=== PATIENT | male | born 1930 | race Caucasian/White ===

== ENCOUNTER 2016-06-30 12:28 | Emergency (ER) | payer MEDICARE, BC ==
[~2016-06-30] VITALS: Ht 176.5 cm; Wt 83.6 kg
[~2016-06-30 12:28] MED LIST: ACET-732 PO; ASCO10007 PO; ASPI81TA2 PO; BUSP10TA71 PO; CETI-115 PO; CHOL200026 PO; CLOB15OI3 TP; CLOP75TA33 PO; FLUO-138 PO; FURO20TA4 PO; HYDR-2164 PO; IRBE300T19 PO; LEVO100T12 PO; LUTE6TAB PO; NICA20CA4 PO; PANT40TA32 PO; POTA-81 PO; PYGEUM PO; TRI IODINE PO; TRIA10.82 EA NOSTRIL; TRIA15CR3 TOP; UBIQ100C PO; VITA100012 PO; VITA100T2 PO; WARF2.5T73 PO; WARF5TAB69 PO; ZINC50TA4 PO
--- OUTSIDE RECORDS SUMMARY | 2016-06-30 12:32 | XMS REPORT | Continuity of Care Document ---
Author Author [facility] Organization [facility] Address Unknown Phone Unavailable Care Team Providers Care Control Room Tender Name Role Phone Unknown, Unknown Primary Care Physician Unavailable Source Comments Some departments are not documenting in the electronic medical record. If you do not see the information that you expected, contact Release of Information in the Health Information Management department at [phone] for further assistance in locating additional records.[facility] Active Allergies and Adverse Reactions Allergen Noted Date Severity Reactions Comments Adhesive 07/24/2015 Medium RASH Aricept 07/24/2015 Low SEE COMMENTS Extreme dreams, restlessness, confusion Beta-Blockers 07/24/2015 Low SEE COMMENTS Extreme irritability (Beta-Adrenergic Blocking Agts) Bystolic 07/24/2015 Medium SEE COMMENTS Extreme fatigue, shortness of breath, severe muscle cramps, loss of appetite, rash Cardura 07/24/2015 Low SEE COMMENTS Nausea, sweats, dizziness, diarrhea Celebrex 07/24/2015 Low SEE COMMENTS Constipation Clonidine 07/24/2015 Low SEE COMMENTS Dry mouth, sleepy, extreme fatigue, foggy headed, unsteady on feet, Codeine 07/24/2015 Medium RASH, ITCHING Daypro 07/24/2015 High HIVES Demerol 07/24/2015 Medium SEE COMMENTS Uncontrollable shaking, cold, blood pressure drops, vomiting, difficulty urinating Digoxin 07/24/2015 Low SEE COMMENTS Confusion, blurred vision, too much sleep Diltiazem 07/24/2015 Low SEE COMMENTS Shortness of breath, extreme fatigue, impaired vision, headache, light headed, edema Doxycycline 07/24/2015 Low STOMACH UPSET Enalapril 07/24/2015 Low SEE COMMENTS Irritability, achy, extreme fatigue Guaifenesin 07/24/2015 Medium RASH, ITCHING Hydrocodone-Acetaminophen 07/24/2015 Low SEE COMMENTS ineffective Ibuprofen 07/24/2015 Low SEE COMMENTS Feel "drugged", elevates blood pressure Levaquin 07/24/2015 Low SEE COMMENTS Nausea, weakness, no appetite, sleeplessness, shortness of breath, stomach pain, headache, constipation Lyrica 07/24/2015 Low SEE COMMENTS Confusion, extreme weakness, fatigue, dehydration, constipation, sleepy Metoprolol 07/24/2015 Low SEE COMMENTS Sleepy, muscle pain in neck and shoulders Metronidazole 07/24/2015 High HIVES Norvasc 07/24/2015 Low SEE COMMENTS Quit working Penicillins 07/24/2015 High HIVES, SEE COMMENTS Closed bronchial tubes Phenergan 07/24/2015 Medium SEE COMMENTS Uncontrollable shaking, cold, blood pressure drops, vomiting, difficulty urinating Spironolactone 07/24/2015 Low UNKNOWN Tylenol Pm 07/24/2015 Low SEE COMMENTS Hangover, confusion Verapamil 07/24/2015 Low SEE COMMENTS Shortness of breath, extreme fatigue, impaired vision, headache, light headed, edema Zanaflex 07/24/2015 Medium MUSCLE PAIN Zithromax 07/24/2015 Medium RASH, ITCHING Current Medications Prescription Sig. Disp. Refills Start End Date Status Date doxycycline hyclate 75 mg Take 150 mg by mouth Active tab daily. aspirin EC 81 mg tablet Take 81 mg by mouth Active daily. irbesartan (AVAPRO) 300 Take 300 mg by mouth at Active mg tablet bedtime daily. bacitracin 500 unit/g Apply to affected area. Active topical ointment As directed busPIRone (BUSPAR) 10 mg Take 10 mg by mouth three Active tablet times daily. clobetasol (TEMOVATE) Apply to affected area Active 0.05 % topical cream twice daily. FLUoxetine (PROZAC) 20 mg Take 20 mg by mouth Active capsule daily. hydrochlorothiazide Take 12.5 mg by mouth Active (HYDRODIURIL) 25 mg daily. tablet furosemide (LASIX) 20 mg Take 20 mg by mouth Active tablet daily. levothyroxine (SYNTHROID) Take 100 mcg by mouth Active 100 mcg tablet daily. triamcinolone (NASACORT) Apply 2 Sprays to each Active 55 mcg nasal inhaler nostril as directed daily. niCARdipine (CARDENE) 20 Take 20 mg by mouth three Active mg capsule times daily. clopiDOGrel (PLAVIX) 75 Take 75 mg by mouth Active mg tablet daily. Potassium 99 mg tab Take 1 Tab by mouth Active daily. potassium chloride SR Take 20 mEq by mouth Active (K-DUR) 20 mEq tablet daily. Pantoprazole 40 mg grps Take 1 Packet by mouth Active daily. SAW PALMETTO PO Take by mouth. Active Sulfacetamide Sodium 10 % Apply to affected area. Active clsr triamcinolone acetonide Apply to affected area Active (KENALOG) 0.1 % topical twice daily. cream acetaminophen (TYLENOL) Take 325 mg by mouth Active 325 mg tablet every 4 hours as needed for Pain. ubiquinol (bulk) 100 % Use as directed. Active powd vitamins, B complex tab Take 1 Tab by mouth Active daily. cholecalciferol (VITAMIN Take 2,000 Units by mouth Active D-3) 1,000 units tablet daily. ascorbic acid(+) 1,000 mg Take by mouth. Active tablet vitamin E 100 unit Take 100 Units by mouth Active capsule daily. warfarin (COUMADIN) 5 mg Take 5 mg by mouth daily. Active tablet zeaxanthin (bulk) 90 % Use as directed. Active powd Zinc 15 mg tab Take 30 mg by mouth Active daily. cetirizine (ZYRTEC) 10 mg Take 10 mg by mouth Active tablet daily. ketotifen(+) (ZADITOR) Place 1 Drop into or Active 0.025 % (0.035 %) around eye(s) as Needed. ophthalmic solution Zinc 50 mg tab Take by mouth. Active Active Problems Problem Noted Date PVD (peripheral vascular disease) (HCC) Overview: Gortex graft of the left leg by Dr. Becerra 12/2012 Hypertension Atrial fibrillation (HCC) YONY on CPAP Overview: with O2 during HOS Depression Emphysema lung (HCC) Macular degeneration Mitral valve prolapse Pulmonary HTN (HCC) Osteoarthritis CAD (coronary artery disease) Cardiac mass Social History Tobacco Use Types Packs/Day Years Used Date Never Assessed Last Filed Vital Signs Vital Sign Reading Time Taken Blood Pressure 120/80 07/24/2015 1:58 PM CDT Pulse 106 07/24/2015 1:58 PM CDT Temperature - - Respiratory Rate - - Height 1.753 m (5' 9") 07/24/2015 1:58 PM CDT Weight 92.987 kg (205 lb) 07/24/2015 1:58 PM CDT Body Mass Index 30.26 07/24/2015 1:58 PM CDT Oxygen Saturation 98% 07/24/2015 1:58 PM CDT Plan of Care Health Maintenance Due Date Last Done Comments Physical (Comprehensive) 07/09/1939 Exam Pertussis Vaccine 07/09/1941 Tetanus Vaccine 1949 Shingles Vaccine 1992 Prevnar/Pneumovax (#1) 1997 Influenza Vaccine 10/15/2016 Results from Last 3 Months Not on file
--- OUTSIDE RECORDS SUMMARY | 2016-06-30 12:33 | XMS REPORT ---
Author Author [place] - Organization Unknown Address Unknown Phone Unavailable Allergies, Adverse Reactions, Alerts * Levaquin causes SHORTNESS OF BREATH. * Guaifenesin causes Eczema (rash). * Phenergan causes Adverse Reaction. * Demerol causes Eczema (rash). * Zithromax Z-Neeraj causes Mild Eczema (rash). * Codeine causes Eczema (rash). * Bystolic causes Eczema (rash). * Penicillins causes Severe Anaphylaxis. * Daypro causes Urticaria (hives). * metronidazole causes Urticaria (hives). * No Latex Allergy. * No IV Contrast Allergy. * No Known Food Allergies. Problems * Peripheral Neurovascular Process Impairment* Status:Resolved. * Peripheral Vascular Disease* Status:Active. Procedures No relevant procedures performed. Medication Medication reconciliation has not been performed. Results LAB--CHEMISTRY from 12/08/2012 10:50 AMAnion Gap 10 (3-20 ) BUN 17 mg/dL (4-20 mg/dL) Calcium 9.4 mg/dL (8.6-10.0 mg/dL) Chloride 101 mEq/L (99-109 mEq/L) CO2 27 mEq/L (22-32 mEq/L) Creatinine 1.20 mg/dL (0.64-1.27 mg/dL) eGFR 58 A (>60- ) Glucose 104 mg/dL H (70-100 mg/dL) Potassium 4.2 mEq/L (3.6-5.1 mEq/L) Sodium 138 mEq/L (136-144 mEq/L) LAB--COAG STUDIES from 12/08/2012 10:50 AMINR 1.3 H (0.9-1.2 ) LAB--HEMATOLOGY from 12/08/2012 10:50 AMHCT 46.4 % (42.0-52.0 %) HGB 16.5 g/dl (14.0-18.0 g/dl) MCH 32.4 pg H (27.0-32.0 pg) MCHC 35.6 g/dL (32.0-36.0 g/dL) MCV 91.2 fL (82.0-99.0 fL) MPV 10.1 fL (9.4-12.3 fL) Platelet Count 196 K/uL (150-400 K/uL) RBC 5.09 M/uL (4.60-6.20 M/uL) RDW 13.9 % (11.5-14.5 %) WBC 8.2 K/uL (4.8-10.8 K/uL)
--- OUTSIDE RECORDS SUMMARY | 2016-06-30 12:33 | XMS REPORT | Referral Summary ---
Author Author [facility] Organization [facility] Address Unknown Phone Unavailable Care Team Providers Care Anesthesiologist And Critical Care Name Role Phone Anurag Duran Primary Care Physician [phone] Encounter Date(s): 12/25/15 - 12/25/15 [facility] [address] [place] [address]- Discharge Disposition: 01-Home or Self Care Attending Physician: Jamir Hutchins MD Admitting Physician: Jamir Hutchins MD Vital Signs No data available for this section Problem List Condition Effective Dates Status Health Status Informant A-fib(Confirmed) Active patient CPAP (continuous Active patient positive airway pressure) dependence(Confirmed ) Acid Active patient reflux(Confirmed) HTN Active patient (hypertension)(Confi rmed) Moderate obstructive Active sleep apnea(Confirmed) Rosacea(Confirmed) Active patient Tissue perfusion Resolved alteration(Confirmed )1 1Problem added automatically by system based on initiation of Tissue Perfusion Cerebral Plan of Care Allergies, Adverse Reactions, Alerts Substance Reaction Severity Status azithromycin Rash Active codeine Eczema (rash) Active Rash Demerol HCl Active guaiFENesin Eczema (rash) Active levofloxacin SHORTNESS OF BREATH Active meperidine Eczema (rash) Active Nausea/Vomiting metroNIDAZOLE Urticaria (hives) Active nebivolol Active oxaprozin Active penicillin Anaphylaxis Active pregabalin Active promethazine Active Medications [place] Thyroid 60 mg oral tablet 1 tabs, Oral, Daily Start Date: 01/04/14 Status: Ordered Astaxanthin 4 mg Astaxanthin 4 mg, 1 tabs, Oral, Daily, 0 Refill(s) Start Date: 11/13/13 Status: Ordered Avapro 75 mg oral tablet 1 tabs, Oral, TID, 0 Refill(s) Start Date: 11/13/13 Status: Ordered BuSpar 10 mg, Oral, TID, 0 Refill(s) Start Date: 11/13/13 Status: Ordered cetirizine 10 mg oral tablet 1 tabs, Oral, Daily, # 30 tabs, 0 Refill(s) Start Date: 11/13/13 Status: Ordered Citracal + D 2 tabs, Oral, BID, 0 Refill(s) Start Date: 11/13/13 Status: Ordered clobetasol 0.05% topical cream 1 cristiana, Daily, 0 Refill(s) Start Date: 11/13/13 Status: Ordered enoxaparin 90 mg, SubCutaneous, q12hr, 0 Refill(s) Start Date: 01/09/14 Status: Ordered fluticasone 50 mcg/inh nasal spray 1 sprays, Nasal, BID, # 16 g, 0 Refill(s) Start Date: 11/13/13 Status: Ordered hydrochlorothiazide 12.5 mg oral tablet 0.5 tabs, Oral, Daily, 0 Refill(s) Start Date: 11/13/13 Status: Ordered magnesium oxide 250 mg oral tablet 1 tabs, Oral, BID, 0 Refill(s) Start Date: 11/13/13 Status: Ordered metoprolol tartrate 25 mg oral tablet 1 tabs, Oral, BID, 0 Refill(s) Start Date: 01/09/14 Status: Ordered minocycline 50 mg oral capsule 2 caps, Oral, q12hr, 0 Refill(s) Start Date: 01/08/14 Status: Ordered Niacinamide 500 mg oral tablet 1 tabs, Oral, Daily, # 30 tabs, 0 Refill(s) Start Date: 11/13/13 Status: Ordered niCARdipine 20 mg oral capsule 1 caps, Oral, TID, # 90 caps, 0 Refill(s) Start Date: 11/13/13 Status: Ordered Plavix 75 mg oral tablet mg tabs, Oral, Daily, 0 Refill(s) Start Date: 02/03/15 Status: Ordered Protonix 40 mg, Oral, Daily, 0 Refill(s) Start Date: 01/04/14 Status: Ordered PROzac 20 mg oral capsule 1 caps, Oral, Daily Start Date: 01/04/14 Status: Ordered triamcinolone acetonide 0 Refill(s) Start Date: 11/13/13 Status: Ordered Turmeric 95% Turmeric 95%, 1 tabs, Oral, Daily, 0 Refill(s) Start Date: 11/13/13 Status: Ordered Tylenol Regular Strength 325 mg oral tablet 2 tabs, Oral, q4hr, as needed, 0 Refill(s) Start Date: 11/13/13 Status: Ordered Ubiquinol 32% Ubiquinol 32%, 1 tabs, Oral, Daily, 0 Refill(s) Start Date: 11/13/13 Status: Ordered Vitamin B6 50 mg oral tablet 1 tabs, Oral, Daily, 0 Refill(s) Start Date: 11/13/13 Status: Ordered Vitamin C 1000 mg oral tablet 1 tabs, Oral, Daily, # 30 tabs, 0 Refill(s) Start Date: 11/13/13 Status: Ordered Vitamin D3 2000 intl units oral tablet 1 tabs, Oral, Daily, 0 Refill(s) Start Date: 11/13/13 Status: Ordered warfarin 2.5 mg oral tablet 1 tabs, Oral, Tuesday, 0 Refill(s) Start Date: 11/13/13 Status: Ordered warfarin 5 mg oral tablet 1 tabs, Oral, 6x/Wk, tuesday thru tuesday only, 0 Refill(s) Start Date: 01/04/14 Status: Ordered Results No data available for this section Immunizations No data available for this section Procedures Procedure Date Related Diagnosis Body Site Appendectomy BACK bilat cataracts removed biopsy pancreas bypass leg Carpal tunnel Deviated septum Endoscope Femoral endarterectomy femoral transluminal angioplasty laser rt. eye [id number] Pacemaker care removal scar tissue rt. eye Stent MADAN procedure Tonsillectomy 1WITH HARDWARE Social History Social History Type Response Smoking Status Former smoker; Type: Cigarettes; Tobacco use per day: More than 1 pack; Number of years: 38 Assessment and Plan No data available for this section
--- OUTSIDE RECORDS SUMMARY | 2016-06-30 12:33 | XMS REPORT | Continuity of Care Document ---
Author Author [facility] Organization [facility] Address Unknown Phone Unavailable Support Name Relationship Address Phone LENARD ROSS MD Caregiver [address] [place] [address] [place] [address] CANDICE DURAN DO Caregiver [facility] [address] [place] [address] ALISTAIR JACKSON MD Caregiver [address] [place] [address] [place] [phone] RICHARD VARGHESE Next Of Kin [address] [facility], [place] [id number] Insurance Providers Payer Name Policy Number Subscriber Name Relationship Medicare [id number] Jaswant Varghese 20 Self Blue Cross Select Plan 65 [id number] Jaswant Varghese 20 Self Advance Directives Directive Response Recorded Date/Time Advanced Directives Type DNR Documentation DPOA for Healthcare 07/11/13 9: 01pm Dr Cannon Resuscitation Status Do Not Resuscitate 07/11/13 7:54pm Resuscitation Documents on File Yes 01/27/14 11:52pm Chief Complaint and Reason for Visit Chief Complaint INFLUENEZA A/ HYPONATREMIA/SIRS Reason for Visit Hypertension Hypokalemia, gastrointestinal losses Influenza A Hyponatremia SIRS (systemic inflammatory response syndrome) Influenza A Pneumonia and influenza Problems Medical Problems Problem Onset Date Status Diarrhea Unknown Active Diarrhea Unknown Active Diarrhea Unknown Active Dehydration Unknown Active Chronic atrial fibrillation Unknown Active Anticoagulated on Coumadin Unknown Active Hypertension Unknown Active Chronic back pain Unknown Active Hypothyroidism Unknown Active Depression Unknown Active Hypokalemia, gastrointestinal losses Unknown Resolved Diarrhea Unknown Active Influenza A Unknown Active Hyponatremia Unknown Active SIRS (systemic inflammatory response syndrome) Unknown Active Influenza A Unknown Active Pneumonia and influenza Unknown Active Medications Medication Dose Route Sig Days/Qty Instructions Order Date Discontinued Date Status Cetirizine Hcl 10 Mg PO DAILY 05/07/13 Active Warfarin Sodium 5 Mg PO DAILY 05/07/13 Active Pantoprazole Sodium 40 Mg PO DAILY 05/07/13 Active Hydrochlorothiazide 12.5 Mg PO DAILY 05/07/13 Active Irbesartan 150 Mg PO TWICE A DAY 05/07/13 Active Thyroid 60 Mg PO DAILY 05/07/13 Active Lansoprazole 15 Mg PO BEDTIME 05/07/13 07/10/13 Discontinued Acetaminophen 2 Tab PO NEEDED 05/07/13 Active Nicardipine Hcl 20 Mg PO THREE TIMES A DAY 05/07/13 Active Buspirone Hcl 10 Mg PO THREE TIMES A DAY 05/07/13 Active Fluoxetine HCl 20 Mg PO DAILY 30 Qty 01/27/14 Active Benzonatate 200 Mg PO THREE TIMES A DAY PRN COUGH 30 Qty 02/01/14 Active Budesonide 0.5 Mg AEROSOL RESP.TX TWICE A DAY 14 Days 02/01/14 Active Diltiazem HCl 360 Mg PO DAILY 30 Days 02/01/14 Active Levalbuterol HCl 0.63 Mg AEROSOL FOUR TIMES DAILY 14 Days 02/01/14 Active Doxycycline Monohydrate 1 Cap PO TWICE DAILY WITH MEALS 7 Days Active Social History Social History Problem Response Recorded Date/Time Chewing Tobacco Status No 07/11/2013 7:10pm Hx Substance Use No 01/27/2014 8:39pm Hx Alcohol Use Y QUIT 25 YRS AGO 01/27/2014 8:39pm Has the pt used tobacco in the last 12 months No 01/27/2014 11:53pm Tobacco Usage none 07/12/2013 8:46am Query Response Start Date Stop Date Smoking Status Former smoker Hospital Discharge Instructions Instructions: Care Instructions: Reason for Hospitalization: Influenza A I was in the hospital because (patient own words): "I was weak and felt bad" Discharge Diet: regular Discharge Activity: as tolerated--wear O2 continuously, bleed into CPAP at night. Do breathing treatments 4x per day, put the pulmicort in the nebulizer 2x per day. Take your medications as rx'd, cooperate with the home health staff Follow Up Appointments: see Dr Duran in 1-2 weeks for follow up.[phone] APPOINTMENT TIME IS 02/11/2014 1:00. Patient Instructions: Should your symptoms return you could contact Dr Duran through the office or return to the ED for emergent evaluation Durable Medical Equipment: RT instruct on home O2 and nebulizer machine Condition at time of discharge: Good Bilirubin Level: 7.2 Congenital Heart Disease Screening Result: Pass Plan of Care Discharge Date 02/01/14 3:00pm Disposition 06 HOME HEALTH SERVICE Instructions/Education Provided DI for Influenza -- Adult Prescriptions See Medications Section Functional Status Query Response Date Recorded Physical Hygiene Self February 01, 2014 2:22pm Disabilities None February 01, 2014 2:22pm Devices Used None February 01, 2014 2:22pm Dressing Self February 01, 2014 2:22pm Ambulation Self February 01, 2014 2:22pm Diet Self February 01, 2014 2:22pm Mental Status Alert Oriented February 01, 2014 2:22pm Disabilities None February 01, 2014 2:22pm Devices Used None February 01, 2014 2:22pm Physical Hygiene Self February 01, 2014 2:22pm Dressing Self February 01, 2014 2:22pm Ambulation Self February 01, 2014 2:22pm Diet Self February 01, 2014 2:22pm Allergies, Adverse Reactions, Alerts Allergen Type Severity Reaction Status Last Updated Beta-Blockers (Beta-Adrenergic Bloc Adverse Reaction Unknown IRRITABILITY Active 01/27/14 Penicillin Allergy Unknown THROAT SWELLING Active 01/27/14 Guaifenesin Allergy Unknown ITCHY RASH Active 01/27/14 Potassium chloride Allergy Unknown PAIN Active 01/27/14 Codeine Allergy Unknown ITCHY RASH Active 01/27/14 Hydrocodone Adverse Reaction Unknown NAUSEA Active 01/27/14 Spironolactone Allergy Unknown Active 01/27/14 Chlorthalidone Adverse Reaction Unknown LEG CRAMPS Active 01/27/14 Ibuprofen Adverse Reaction Unknown "FEELS DRUGGED" Active 01/27/14 Metronidazole Allergy Unknown HIVES Active 01/27/14 Azithromycin Allergy Unknown ITCHY RASH Active 01/27/14 Amlodipine Adverse Reaction Unknown "QUIT WORKING" Active 01/27/14 Oxaprozin Allergy Unknown HIVES Active 01/27/14 Promethazine Allergy Unknown HYPOTENSION Active 01/27/14 Doxazosin Allergy Unknown N/D,DIZZINESS Active 01/27/14 Clonidine Adverse Reaction Unknown DRY MOUTH Active 01/27/14 Enalapril Adverse Reaction Unknown FATIGUE Active 01/27/14 Meperidine Allergy Unknown HYPOTENSION Active 01/27/14 Diphenhydramine Adverse Reaction Unknown "HANGOVER" Active 01/27/14 Tizanidine Adverse Reaction Unknown PAIN/WEAKNESS Active 01/27/14 Donepezil Adverse Reaction Unknown RESTLESSNESS Active 01/27/14 Levofloxacin Allergy Unknown N/V,SOA,WEISS Active 01/27/14 Nebivolol Allergy Unknown FATIGUE,SOA Active 01/27/14 Celecoxib Adverse Reaction Unknown CONSTIPATION Active 01/27/14 Pregabalin Allergy Unknown CONFUSION,WEAKNESS Active 01/27/14 Immunizations Name Given Type Hx Influenza Vaccination No Historical Hx Pneumococcal Vaccination No Historical Hx Tetanus, Diptheria, Pertussis No Historical Hx Influenza Vaccination No Historical Hx Tetanus Diptheria No Historical Hx Tetanus, Diptheria, Pertussis No Historical Hx Tetanus Toxoid Vaccination No Historical Vital Signs Acute Vital Signs Vital Response Date/Time Temperature (Fahrenheit) 96.4 deg F (96.8 - 99.1) Temperature (Calculated Celsius) 35.53049 degrees C (36.0 - 37.3) Temperature Source Axillary Pulse Rate (adult) 81 bpm (60 - 100) Respiratory Rate 16 breaths/min (10 - 20) O2 Sat by Pulse Oximetry 94 % (90 - 100) Oxygen Delivery Method Nasal Cannula Oxygen Flow Rate 3.00 L/min Height 5 ft 9 in Weight 205 lb Body Mass Index 30.0 kg/m^2 Results Test Source Date Result Interp. Ref. Range Comments Alanine Aminotransferase (ALT/SGPT) January 28, 2014 4:24am 39 U/L N 21 -72 Albumin January 28, 2014 4:24am 3.3 G/DL L 3.5-5.0 Albumin/Globulin Ratio January 28, 2014 4:24am 1.2 RATIO N 1.1-2.2 Alkaline Phosphatase January 28, 2014 4:24am 70 U/L N 38-126 Amylase Level July 10, 2013 2:15pm 67 U/L N 30-110 Anion Gap February 01, 2014 4:44am 11 MEQ/L N 5-15 Aspartate Amino Transf (AST/SGOT) January 28, 2014 4:24am 48 U/L N 17- 59 BUN/Creatinine Ratio February 01, 2014 4:44am 21 RATIO N 6-26 Band Neutrophils # February 01, 2014 4:44am 0.6 T/MM3 - Band Neutrophils % February 01, 2014 4:44am 6.0 % N 0-6 Basophils # (Auto) January 31, 2014 4:50am 0.0 T/MM3 N 0-0.2 Basophils (%) (Auto) January 31, 2014 4:50am 0.5 % N 0-2 Blood Urea Nitrogen February 01, 2014 4:44am 33.0 MG/DL H 9-20 C. difficile Toxin B Gene (PCR) July 12, 2013 10:10am Negative - If Toxin A is clinically indicated, treat accordingly. Calcium Level February 01, 2014 4:44am 9.2 MG/DL N 8.4-10.2 Calculated Osmolality February 01, 2014 4:44am 272 MOSM/KG N 261-280 Carbon Dioxide Level February 01, 2014 4:44am 23 MEQ/L N 22-30 Chemistry Specimen Hemolysis February 01, 2014 4:44am < 15 0-25 0-25 : No Hemolysis.26-70: Slight Hemolysis - can falsely elevate K and Urine Protein. 71-285: Moderate Hemolysis - can falsely elevate K, Troponin I, CA 19-9, PTH, CSF GLucose, and Urine Protein, and can falsely decrease Phenytoin. 286-999: Gross Hemolysis - can falsely elevate K, Troponin I, CA 19-9, PTH, CSF Glucose, and Urine Protine, and can falsely decrease Phenytoin. Recommend specimen recollection. Chloride Level February 01, 2014 4:44am 103 MEQ/L N 98-107 Creatinine February 01, 2014 4:44am 1.6 MG/DL DH 0.8-1.5 Eosinophils # (Auto) January 31, 2014 4:50am 0.1 T/MM3 N 0-0.5 Eosinophils (%) (Auto) January 31, 2014 4:50am 0.9 % N 0-4 Free Thyroxine July 12, 2013 8:30am 1.01 NG/DL N 0.78-2.19 COMMENT phillip Globulin January 28, 2014 4:24am 2.8 G/DL N 2.4-3.6 Glomerular Filtration Rate Calc February 01, 2014 4:44am 42 - Glucose Level February 01, 2014 4:44am 109 MG/DL N 75-110 Hematocrit February 01, 2014 4:44am 38.2 % L 41-53 Hemoglobin February 01, 2014 4:44am 13.5 GM/DL N 13.5-17.5 Icterus Index February 01, 2014 4:44am < 2 0-7 Immature Granulocyte # (Auto) January 31, 2014 4:50am 0.03 T/MM3 N 0.00 -0.03 Immature Granulocyte % (Auto) January 31, 2014 4:50am 0.3 % N 0.0-0.5 Influenza Type A Antigen January 27, 2014 9:28pm Positive - This test can not distinguish influenza A virus subtypes,e.g., seasonal influenza A and novel influenza A (H1N1). Influenza Type B Antigen January 27, 2014 9:28pm Negative - Negative for Flu B protein antigen. Assay sensitivity is90%. Lab Scanned Report January 17, 2014 8:31pm LAB TEST FORM REQUEST [id number] - Lipase July 10, 2013 2:15pm 102 U/L N 23-300 Lymphocytes # (Auto) January 31, 2014 4:50am 1.4 T/MM3 N 1-4.8 Lymphocytes # (Manual) February 01, 2014 4:44am 1.6 T/MM3 N 1-4.8 Lymphocytes % (Manual) February 01, 2014 4:44am 17.0 % L 23-45 Lymphocytes (%) (Auto) January 31, 2014 4:50am 15.9 % L 23-45 Magnesium Level January 30, 2014 4:51am 1.8 MG/DL N 1.6-2.3 Mean Corpuscular Hemoglobin February 01, 2014 4:44am 32.6 UUG N 26-34 Mean Corpuscular Hemoglobin Concent February 01, 2014 4:44am 35.3 GM/DL N 31-37 Mean Corpuscular Volume February 01, 2014 4:44am 92.3 UM3 N 80-100 Mean Platelet Volume February 01, 2014 4:44am 9.4 UM3 N 9.4-12.4 Monocytes # (Auto) January 31, 2014 4:50am 0.7 T/MM3 N 0-0.8 Monocytes # (Manual) February 01, 2014 4:44am 0.6 T/MM3 N 0-0.8 Monocytes % (Manual) February 01, 2014 4:44am 6.0 % N 0-9.0 Monocytes (%) (Auto) January 31, 2014 4:50am 8.2 % N 0-9.0 Neutrophils # (Auto) January 31, 2014 4:50am 6.5 T/MM3 N 1.8-7.7 Neutrophils # (Manual) February 01, 2014 4:44am 6.5 T/MM3 N 1.8-7.7 Neutrophils % (Manual) February 01, 2014 4:44am 70.0 % H 33-66 Neutrophils (%) (Auto) January 31, 2014 4:50am 74.2 % H 33-66 Platelet Count February 01, 2014 4:44am 208 T/MM3 N 130-400 Potassium Level February 01, 2014 4:44am 4.6 MEQ/L N 3.6-5 Prealbumin January 27, 2014 8:56pm 15.7 MG/DL L 17.6-36.0 COMMENT may use blood in lab Procalcitonin January 27, 2014 8:56pm 0.22 NG/ML - PCT </=0.5 ng/mL - sepsis not likely;PCT >0.5 and </=2 ng/mL - sepsis possible; PCT >2 ng/mL - sepsis likely; PCT >/=10 ng/mL - systemic inflammatory response - sepsis or septic shock highly indicated. Prothromb Time International Ratio February 01, 2014 4:44am 4.94 PH 0.81 -1.09 THERAPUTIC RANGE=2.00-3.00 FOR ANTI-THROMBOSIS THERAPUTIC RANGE=2.50- 3.50 FOR IMPLANTED VALVE RDW Standard Deviation February 01, 2014 4:44am 46.8 FL N 36.9-50.2 Reactive Lymphocytes # February 01, 2014 4:44am 0.1 T/MM3 H 0-0 Reactive Lymphocytes % February 01, 2014 4:44am 1.0 % H 0-0 Red Blood Count February 01, 2014 4:44am 4.14 M/MM3 L 4.50-5.90 Sodium Level February 01, 2014 4:44am 137 MEQ/L N 134-144 Stool Occult Blood July 10, 2013 2:55pm Negative - Has specimen been collected/obtained? Y Stool for White Cells July 10, 2013 2:55pm Negative - Has specimen been collected/obtained? Y Thyroid Stimulating Hormone (TSH) January 27, 2014 8:56pm 3.91 MIU/L N 0.47-4.68 COMMENT may use blood in lab Total Bilirubin January 28, 2014 4:24am 0.80 MG/DL N 0.20-1.30 Total Protein January 28, 2014 4:24am 6.1 G/DL L 6.3-8.2 Troponin I January 27, 2014 8:56pm 0.028 ng/ml N 0-0.12 Turbidity February 01, 2014 4:44am < 20 0-20 Urine Amorphous Urates January 27, 2014 9:23pm Moderate - Has specimen been collected/obtained? Y Urine Bacteria January 27, 2014 9:23pm Trace H - Has specimen been collected/obtained? Y Urine Bilirubin January 27, 2014 9:23pm Negative - Has specimen been collected/obtained? Y Urine Blood January 27, 2014 9:23pm 1+ H - Has specimen been collected /obtained? Y Urine Collection Type January 27, 2014 9:23pm Voided-not cc-midstr - Has specimen been collected/obtained? Y Urine Color January 27, 2014 9:23pm Yellow - Has specimen been collected/obtained? Y Urine Culture Indicated July 10, 2013 2:55pm Cult not indicated - Has specimen been collected/obtained? Y Urine Glucose (UA) January 27, 2014 9:23pm Negative - Has specimen been collected/obtained? Y Urine Hyaline Casts July 10, 2013 2:55pm 5-10 /LPF - Has specimen been collected/obtained? Y Urine Ketones January 27, 2014 9:23pm Negative - Has specimen been collected/obtained? Y Urine Leukocyte Esterase January 27, 2014 9:23pm Negative - Has specimen been collected/obtained? Y Urine Mucus July 10, 2013 2:55pm Present - Has specimen been collected /obtained? Y Urine Nitrite January 27, 2014 9:23pm Negative - Has specimen been collected/obtained? Y Urine Protein January 27, 2014 9:23pm 3+ H - Has specimen been collected/obtained? Y Urine RBC January 27, 2014 9:23pm 3-5 /HPF H - Has specimen been collected/obtained? Y Urine Specific [place] January 27, 2014 9:23pm >=1.030 H - Has specimen been collected/obtained? Y Urine Squamous Epithelial Cells January 27, 2014 9:23pm 0-5 - Has specimen been collected/obtained? Y Urine Turbidity January 27, 2014 9:23pm Clear - Has specimen been collected/obtained? Y Urine Urobilinogen January 27, 2014 9:23pm 0.2 EU/DL - Has specimen been collected/obtained? Y Urine WBC January 27, 2014 9:23pm None seen /HPF - Has specimen been collected/obtained? Y Urine pH January 27, 2014 9:23pm 6.0 - Has specimen been collected/ obtained? Y Venous Blood Lactate January 27, 2014 8:56pm 1.2 MMOL/L N 0.6-2.2 Vitamin B12 Level January 27, 2014 8:56pm 699 PG/ML N 308-041 COMMENT may use blood in lab White Blood Count February 01, 2014 4:44am 9.3 T/MM3 N 4.5-11.0 Blood Culture Peripheral Blood January 27, 2014 8:56pm NO GROWTH AFTER 4 DAYS Stool Culture Stool July 10, 2013 2:55pm Name: JASWANT VARGHESE Unit #: [id number] : 1930 Sex: M DISCHARGE SUMMARY Admit Date: 01/27/14 Report #: [id number] General Date Date DATE: 02/01/14 TIME: 14:04 Attending Physician Lenard Ross MD Admitting Physician Lenard Ross MD Consulting Physician Celso Benavides MD Admitting Diagnosis (1) Influenza A Status: Acute (2) SIRS (systemic inflammatory response syndrome) Status: Acute (3) Hyponatremia Status: Acute (4) Diarrhea Status: Acute (5) Dehydration Status: Acute (6) Hypokalemia, gastrointestinal losses Status: Acute (7) Chronic atrial fibrillation Status: Chronic (8) Anticoagulated on Coumadin Status: Chronic (9) Hypertension Status: Chronic (10) Depression Status: Chronic (11) Hypothyroidism Status: Chronic (12) Chronic back pain Status: Chronic Discharge Diagnosis same adding pneumonia Procedures none Laboratory Laboratory Laboratory Tests Test 02/01/14 04:44 White Blood Count 9.3 T/MM3 Red Blood Count 4.14 M/MM3 Hemoglobin 13.5 GM/DL Hematocrit 38.2 % Mean Corpuscular Volume 92.3 UM3 Mean Corpuscular Hemoglobin 32.6 UUG Mean Corpuscular Hemoglobin 35.3 GM/DL Concent RDW Standard Deviation 46.8 FL Platelet Count 208 T/MM3 Mean Platelet Volume 9.4 UM3 Neutrophils % (Manual) 70.0 % Band Neutrophils % 6.0 % Lymphocytes % (Manual) 17.0 % Reactive Lymphocytes % 1.0 % Monocytes % (Manual) 6.0 % Neutrophils # (Manual) 6.5 T/MM3 Band Neutrophils # 0.6 T/MM3 Lymphocytes # (Manual) 1.6 T/MM3 Reactive Lymphocytes # 0.1 T/MM3 Monocytes # (Manual) 0.6 T/MM3 Prothromb Time International 4.94 Ratio Turbidity < 20 Sodium Level 137 MEQ/L Potassium Level 4.6 MEQ/L Chloride Level 103 MEQ/L Carbon Dioxide Level 23 MEQ/L Anion Gap 11 MEQ/L Blood Urea Nitrogen 33.0 MG/DL Creatinine 1.6 MG/DL Glomerular Filtration Rate 42 Calc BUN/Creatinine Ratio 21 RATIO Glucose Level 109 MG/DL Calculated Osmolality 272 MOSM/KG Calcium Level 9.2 MG/DL Icterus Index < 2 Chemistry Specimen Hemolysis < 15 History of Present Illness Mr. Varghese is an 83-year-old gentleman who presents to [facility] Emergency Room secondary to increasing shortness of breath, cough, congestion and fever. He reports on January 24 he started noticing more shortness of breath and cough. Cough has been thick and productive of yellow sputum at times. His chest has become sore from all the coughing he has done. During this time, he has been feeling more weak and feverish. Today he did start running higher temperature, almost 101 at home. His appetite has been very diminished. He is not feeling hungry. He did have two episodes of emesis today. He has not had any diarrhea. Denies chest pressure or pain. At home he did have an episode where he started losing balance and went down, landing on some clothes. His found it very, very difficult to get him back up. In light of his worsening symptoms, he presents to emergency room where he is evaluated. His white count is elevated at 11.9 with 85% neutrophils and 4% bands. Serum sodium is decreased at 125. Temperature is elevated at 101.6 and he is tachycardic with heart rate between 110 and 120. Influenza type A antigen is positive. In light of his influenza pneumonia with secondary sepsis, as manifested by leukocytosis with shift, tachycardia and temperature 101.6, Dr. Ross was notified and patient was subsequently placed in inpatient status at [facility] for supportive care and treatments. Anticipated length of stay is deemed to be greater than two midnights. Intensity of care is deemed moderate in that he will need IV fluids, IV Rocephin, close cardiopulmonary monitoring. Hospital Course 01/27- 1. Will place patient inpatient admission status at [facility] under the care of Dr. Ross. 2. Initiate Tamiflu 75 mg p.o. b.i.d. for empiric treatment of influenza. 3. Start Rocephin 1 g IV daily for antimicrobial coverage. With his multitude of allergies, this precludes other antibiotic therapy. 4. Initiate IV fluids of normal saline at 100 cc/hour for hydration and also to normalize serum sodium, monitoring serum sodium closely. 5. Continue with supplemental oxygen, weaning as able. 6. Initiate nebulizer treatments of DuoNeb q.i.d. and q.2 p.r.n. along with budesonide 0.5 mg b.i.d. 7. Continue with Protonix but will switch to 40 mg IV daily for GI protection as well as for his GERD. 8. Continue with Coumadin for DVT prophylaxis as well as in light of his atrial fibrillation. Pharmacy will manage INR and adjust Coumadin. 9. Monitor cardiac telemetry. 10. Initiate respiratory precautions in light of influenza. 11. Home medications will be continued with the exception of holding his hydrochlorothiazide secondary to hyponatremia. 12. Have Zofran available as needed for nausea. 12. PRN medications are ordered. 13. Discuss code status with patient. He requests no resuscitation. Order is written. 14. Recheck CMP, CBC in a.m. 15. Check prealbumin to assess nutritional status. Will check TSH in light of his hypothyroidism. Vitamin B12 will be obtained secondary to his small vessel ischemic changes of the brain to exclude vitamin B deficiency which could lead to memory loss. 16. Patients care will be returned to Dr. Duran at time of discharge from [facility]. 01/28- Will hold HCTZ, continue IVF, follow lab, wean off O2, if unsuccessful will recheck CXR. Making good gains 01/29- Switch to Xopenex for management of side effect from the Duoneb. Follow lab, have staff ambulate in the halls. Pt has been having short runs of NSVT and Frequent PVCs on the monitor as well as being tachycardic with his afib--he is an established pt of Dr Benavides's--will have him see--Dr Benavides started Diltiazem for better rate control 01/30 Continue Tamiflu for Influenza tx. Breathing improved, off o2. RT to add Acapella. Na 135 today, will remove fluid restriction, gave instructions on monitoring free water/fluid intake. INR 2.44, continues on Coumadin Device interrogation to be done--no acute findings Cardizem increased by Dr. Benavides, continues in afib. BC neg at 48 hours. K improved to 3.8. 01/31- Continue Rocephin for antimicrobial coverage. Tamiflu for viral influenza. CXR reveals pneumonia, and pt is desaturating with activity. Spoke with pt and regarding staying in the hospital while initially we had been talking about discharge soon. They choose to pursue Home O2 and Home health and return home. 02/01- Pt is set up for home O2 and a home nebulizer machine through [facility]. [facility] will see for home health services. Pt will go home on Doxycycline, Tamiflu last dose is today. Dr Duran updated per phone regarding discharge planning. INR monitoring through the Home health service. Should pt have any difficulty he could contact Dr Duran through the office or return to the ED for emergent evaluation. Time spent in discharge activity is 45 min Problems: (1) Pneumonia and influenza Status: Acute (2) Influenza A Status: Acute (3) SIRS (systemic inflammatory response syndrome) Status: Acute (4) Hyponatremia Status: Acute (5) Diarrhea Status: Acute (6) Dehydration Status: Acute (7) Hypokalemia, gastrointestinal losses Status: Resolved (8) Chronic atrial fibrillation Status: Chronic (9) Anticoagulated on Coumadin Status: Chronic (10) Hypertension Status: Chronic (11) Depression Status: Chronic (12) Hypothyroidism Status: Chronic (13) Chronic back pain Status: Chronic DVT Prophylaxis: Coumadin GI Prophylaxis: Protonix Code Status Do Not Resuscitate Home Meds Active Scripts Doxycycline Monohydrate 100 Mg Capsule1 Cap PO BIDWM 7 Days Prov:LEONARDA PANTOJA DO 02/01/14 Levalbuterol HCl (Xopenex)0.63 Mg/3 Ml Inha0.63 Mg AEROSOL QID 14 Days Prov:LEONARDA PANTOJA DO 02/01/14 Diltiazem HCl (Cardizem [place])360 Mg [id number] Mg PO DAILY 30 Days Prov:LEONARDA PANTOJA DO 02/01/14 Budesonide (Pulmicort)0.5 Mg/2 Ml Inha0.5 Mg AEROSOL RTBID 14 Days Prov:SCARLETTLEONARDA BARAJAS DO 02/01/14 Benzonatate 200 Mg [id number] Mg PO TID PRN (COUGH) #30 CAP Prov:LEONARDA PANTOJA DO 02/01/14 Reported Medications Fluoxetine HCl 20 Mg [id number] Mg PO DAILY #30 01/27/14 Buspirone Hcl (Buspar)10 Mg Qvkuju85 Mg PO TID 05/07/13 Nicardipine Hcl 20 Mg Qihvoqo41 Mg PO TID 05/07/13 Acetaminophen (Tylenol)500 Mg Tablet2 Tab PO PRN 05/07/13 Thyroid ([place] Thyroid)60 Mg Fkcawo20 Mg PO DAILY 05/07/13 Irbesartan (Avapro)300 Mg Slshgn170 Mg PO BID 05/07/13 Hydrochlorothiazide 25 Mg Vbbzff98.5 Mg PO DAILY 05/07/13 Pantoprazole (Protonix)40 Mg Tablet.dr40 Mg PO DAILY 05/07/13 Warfarin Sodium 5 Mg Tablet5 Mg PO DAILY 05/07/13 Cetirizine Hcl (Zyrtec)10 Mg Itblwcw15 Mg PO DAILY 05/07/13 Discharge Disposition stable Copies To 1: CANDICE DURANEMANLEONARDA Feb 01, 2014 14:05 Procedures Procedure Status Date Provider(s) ROUTINE VENIPUNCTURE completed 01/17/14 COMPLETE CBC W/AUTO DIFF WBC completed 01/17/14 Encounters Encounter Location Date/Time Discharged Inpatient [facility] 01/27/14 10:29pm Registered Clinic [facility] 01/17/14 5:00pm Recent Diagnosis Hypertension Hypokalemia, gastrointestinal losses Influenza A Hyponatremia SIRS (systemic inflammatory response syndrome) Influenza A Pneumonia and influenza
[2016-06-30 12:34] VITALS: Ht 176.5 cm; Wt 83.6 kg
--- OUTSIDE RECORDS SUMMARY | 2016-06-30 12:34 | XMS REPORT | Referral Summary ---
Author Author [facility] Organization [facility] Address Unknown Phone Unavailable Care Team Providers Care Short Goods Drier Name Role Phone Anurag Duran Primary Care Physician [phone] Encounter VC Date(s): 12/25/15 - 12/25/15 [facility], [facility] [address] [place] [place] [address] Discharge Diagnosis: YONY on CPAP Discharge Diagnosis: Nocturnal hypoxemia Discharge Disposition: 01-Home or Self Care Attending Physician: Jamir Hutchins MD Admitting Physician: Jamir Hutchins MD Vital Signs Most recent to 1 oldest [Reference Range]: Peripheral Pulse 84 bpm Rate [60-100 bpm] (12/25/15 10:57 AM) Blood Pressure 140/70 mmHg [90-140/60-90 mmHg] (12/25/15 10:57 AM) SpO2 92 % (12/25/15 10:57 AM) Problem List Condition Effective Dates Status Health [...] Anaphylaxis Active pregabalin Active promethazine Active Medications Iuka Thyroid 60 mg oral tablet 1 tabs, [...]
--- OUTSIDE RECORDS SUMMARY | 2016-06-30 12:34 | XMS REPORT | Continuity of Care Document ---
Author Author [facility] Organization [facility] Address Unknown Phone Unavailable Support Name Relationship Address Phone CANDICE CHAPA DO Caregiver [address] [facility] [place] [address] Unavailable ALISTAIR JACKSON MD Caregiver [address] [place] [address] [place] [address] Unavailable RICHARD VARGHESE Next Of Kin [address] [facility], [place] [id number] Insurance Providers Guarantor AbimaelJaswant Ashish Address [address] [place] [address] Email [email or web address] Payer Medicare Policy Number [id number] Subscriber's Name Jaswant Varghese Relationship 18 Self Effective Date 97 Payer Enviable [employer] Plan 65 Policy Number [id number] Subscriber's Name Jaswant Varghese Relationship 18 Self Group Number [id number] Advance Directives Directive Response Recorded Date/Time Advanced Directives Type DNR Documentation DPOA for Healthcare 07/11/13 9:01pm Ordered Resuscitation Status Do Not Resuscitate 07/11/13 7:54pm Chief Complaint and Reason for Visit Chief Complaint Nosebleed Reason for Visit Epistaxis [id number] Problems Active Problems Medical Problem Onset Date Status Abnormal findings on diagnostic imaging of heart and coronary circulation Unknown Acute Acute sinusitis Unknown Acute Anticoagulated on Coumadin Unknown Chronic Atherosclerosis of [place] artery of both lower extremities Unknown Chronic Atherosclerotic heart disease of [place] coronary artery without angina pectoris Unknown Chronic Atrial fibrillation Unknown Acute CAD (coronary artery disease) Unknown Acute Chronic atrial fibrillation Unknown Chronic Chronic back pain Unknown Chronic Dehydration Unknown Acute Depression Unknown Chronic Diarrhea Unknown Acute Elevated INR Unknown Acute Epistaxis Unknown Acute Essential (primary) hypertension Unknown Chronic Hypertension Unknown Chronic Hypokalemia, gastrointestinal losses Unknown Resolved Hyponatremia Unknown Acute Hypothyroidism Unknown Chronic Influenza A Unknown Acute Other secondary pulmonary hypertension Unknown Chronic Pneumonia and influenza Unknown Acute Presence of cardiac pacemaker Unknown Chronic Retinal hemorrhage, right ~03/10/2015 Acute SIRS (systemic inflammatory response syndrome) Unknown Acute Surgical Problem Onset Date Status Status post coronary artery stent placement Unknown Acute Medications Current Home Medications Medication Dose Units Route Directions Days Qty Instructions Start Date Acetaminophen (Tylenol) 500 Mg Tablet 2 Tab Oral As Needed as needed for Pain 05/07/13 Ascorbic Acid (Vitamin C) 1,000 Mg Tablet 1 Tab Oral Daily Aspirin 81 Mg Tab.chew 81 Mg Oral Daily 30 Tablet 03/11/15 Buspirone Hcl (Buspar) 10 Mg Tablet 10 Mg Oral Three Times A Day 05/07/13 Cetirizine Hcl (Zyrtec) 10 Mg Tablet 10 Mg Oral Daily 03/11/15 Cholecalciferol (Vitamin D3) (Vitamin D-3) 2,000 Unit Capsule 1 Cap Oral Daily 08/05/15 Clobetasol Propionate 15 Gm Oint...g. 1 Applic Topical As Needed as needed for Itching 08/13/14 Clopidogrel Bisulfate (Clopidogrel) 75 Mg Tablet 75 Mg Oral Daily 30 03/11/15 Fluoxetine Hcl 20 Mg Capsule 20 Mg Oral Daily 03/11/15 Furosemide 20 Mg Tablet 1 Tab Oral Daily 08/05/15 Hydrochlorothiazide 25 Mg Tablet 12.5 Mg Oral Daily 05/07/13 Irbesartan 300 Mg Tablet 300 Mg Oral Daily 03/11/15 Levothyroxine Sodium 100 Mcg Tablet 1 Tab Oral Before Breakfast 06/17/14 Lutein 6 Mg Tablet 1 Tab Oral Daily 08/05/15 Nicardipine Hcl 20 Mg Capsule 20 Mg Oral Three Times A Day Pantoprazole Sodium (Protonix) 40 Mg Tablet.dr 40 Mg Oral Before Breakfast 05/07/13 Potassium Chloride 20 Meq Tablet.er 20 Meq Oral Give With Breakfast Take 1 tablet, by mouth, daily with breakfast. 08/05/15 Pygeum 100 Mg Oral Daily 08/05/15 Tri-Iodine 12.5 Mg Oral Daily 08/05/15 Triamcinolone (Triamcinolone Acetonide) 15 Applic/15 G Cr 1 Applic Topically As Needed 30 Gram 03/11/15 Triamcinolone Acetonide (Nasacort) 10.8 Ml [place] 2 [place] Each Nostril As Needed 06/17/14 Ubiquinol 100 Mg Capsule 1 Cap Oral Daily 08/05/15 Vitamin B Complex 100 No.2 (B-100 Complex) 100 Mg Tablet.er 1 Tab Oral Daily 08/05/15 Vitamin E 1,000 Unit Capsule 1 Cap Oral Daily 08/05/15 Warfarin Sodium 2.5 Mg Tablet 2.5 Mg Oral We,Sa 03/11/15 Warfarin Sodium 5 Mg Tablet 5 Mg Oral Mcgill,Mo,Tu,Th,Fr 05/07/13 Zinc Gluconate (Zinc) 50 Mg Tablet 50 Mg Oral Daily 08/05/15 Past Home Medications Medication Directions Ordered Status Amiodarone Hcl 200 Mg Tablet, 200 Mg Oral Daily as needed for First Dose On 12/2906/18/14 Discontinued Diltiazem Hcl (Cardizem Cd) 300 Mg Cap.er.24h, 300 Mg Oral Daily 06/17/14 Discontinued Diltiazem Hcl (Cardizem La) 360 Mg Tab.er.24h, 360 Mg Oral Daily 06/14/14 Discontinued Irbesartan (Avapro) 300 Mg Tablet, 150 Mg Oral Twice A Day 07/16/14 Discontinued Lansoprazole 15 Mg Capsule.dr, 15 Mg Oral Bedtime 05/07/13 Discontinued Nicardipine Hcl 20 Mg Capsule, 20 Mg Oral Three Times A Day 05/07/13 Discontinued Triamcinolone (Triamcinolone Acetonide) Unknown Strength Cr, Unknown Dose Topically As Needed 08/13/14 Discontinued Social History Social History Problem Response Recorded Date/Time Onset Date Status Chewing Tobacco Status No 07/11/2013 7:10pm Not Applicable Not Applicable Hx Substance Use No 11/01/2015 11:00pm Not Applicable Not Applicable Hx Alcohol Use N QUIT 25 YRS AGO 11/01/2015 11:00pm Not Applicable Not Applicable Has the pt used tobacco in the last 12 months No 08/05/2015 11:05am Not Applicable Not Applicable Tobacco Usage none 08/05/2015 10:20am Not Applicable Not Applicable Query Response Start Date Stop Date Smoking Status Former smoker Hospital Discharge Instructions No hospital discharge instructions. Plan of Care Discharge Date 11/02/15 2:57am Disposition 01 DISCHARGED HOME, SELF-CARE Condition at Discharge Stable Instructions/Education Provided Nosebleed Prescriptions See Medication Section Referrals CANDICE CHAPA DO Order Date: 2 Days Address: [address] [address] Note: Additional Instructions/Education IF BLEEDING REOCCURS, BLOW NOSE TO CLEAR CLOTS AND APPLY AFRIN TO NARE (SEVERAL SPRAYS) AND APPLY CLAMP FOR 20 MINUTES. MAY REPEAT AN ADDITIONAL TIME. IF BLEEDING DOES NOT STOP, OR IF YOU ARE CONCERNED, PLEASE RETURN TO THE ER. SKIP TUESDAY'S DOSE OF WARFARIN DUE TO ELEVATED INR 4.4 TODAY Functional Status No functional status results. Allergies, Adverse Reactions, Alerts Allergen Type Severity Reaction Status Last Updated Beta-Blockers (Beta-Adrenergic Bloc Adverse Reaction Unknown IRRITABILITY Active 11/01/15 Penicillin Allergy Unknown THROAT SWELLING Active 11/01/15 Guaifenesin Allergy Unknown ITCHY RASH Active 11/01/15 Potassium chloride Allergy Unknown PAIN Active 11/01/15 Codeine Allergy Unknown ITCHY RASH Active 11/01/15 Hydrocodone Adverse Reaction Unknown NAUSEA Active 11/01/15 Spironolactone Allergy Unknown Active 03/11/15 Chlorthalidone Adverse Reaction Unknown LEG CRAMPS Active 11/01/15 Ibuprofen Adverse Reaction Unknown "FEELS DRUGGED" Active 11/01/15 Metronidazole Allergy Unknown HIVES Active 11/01/15 Azithromycin Allergy Unknown ITCHY RASH Active 11/01/15 Amlodipine Adverse Reaction Unknown "QUIT WORKING" Active 11/01/15 Oxaprozin Allergy Unknown HIVES Active 11/01/15 Promethazine Allergy Unknown HYPOTENSION Active 11/01/15 Doxazosin Allergy Unknown N/D,DIZZINESS Active 11/01/15 Clonidine Adverse Reaction Unknown DRY MOUTH Active 11/01/15 Enalapril Adverse Reaction Unknown FATIGUE Active 11/01/15 Meperidine Allergy Unknown HYPOTENSION Active 11/01/15 Diphenhydramine Adverse Reaction Unknown "HANGOVER" Active 11/01/15 Tizanidine Adverse Reaction Unknown PAIN/WEAKNESS Active 11/01/15 Donepezil Adverse Reaction Unknown RESTLESSNESS Active 11/01/15 Levofloxacin Allergy Unknown N/V,SOA,WEISS Active 11/01/15 Nebivolol Allergy Unknown FATIGUE,SOA Active 11/01/15 Celecoxib Adverse Reaction Unknown CONSTIPATION Active 11/01/15 Pregabalin Allergy Unknown CONFUSION,WEAKNESS Active 11/01/15 Immunizations Query Response on File Recorded Date/Time Hx Influenza Vaccination Y fall 201408/05/15 11:05am Hx Pneumococcal Vaccination Y UNKNOWN YEAR 08/05/15 11:05am Hx Tetanus, Diptheria, Pertussis No 01/30/14 2:34pm Hx Influenza Vaccination Y fall 201408/05/15 11:05am Hx Tetanus Diptheria No 01/30/14 2:34pm Hx Tetanus, Diptheria, Pertussis No 01/30/14 2:34pm Hx Tetanus Toxoid Vaccination No 01/30/14 2:34pm Influenza Vaccine Hx FALL 2015 11/01/15 11:00pm Vital Signs Acute Vital Signs Vital Response Date/Time Temperature (Fahrenheit) 97.0 deg F (96.8 - 99.1) 11/02/2015 1:47am Temperature (Calculated Celsius) 36.10020 degrees C (36.0 - 37.3) 11/02/2015 1:47am Temperature Source Oral 08/05/2015 1:26pm Pulse Rate (adult) 96 bpm (60 - 100) 11/02/2015 2:57am Respiratory Rate 18 breaths/min (10 - 20) 11/02/2015 2:57am O2 Sat by Pulse Oximetry 92 % (90 - 100) 11/02/2015 2:57am Oxygen Delivery Method Room Air 08/05/2015 3:30pm Oxygen Delivery Method Room Air 08/05/2015 11:00am Blood Pressure 178/94 mm Hg 11/02/2015 2:57am Blood Pressure Source Automatic Cuff 08/05/2015 3:30pm Height (Feet) 5 feet 11/01/2015 10:45pm Height (Inches) 9.00 inches 11/01/2015 10:45pm Weight (Kilograms) 85.000 kg 11/01/2015 10:45pm Body Mass Index (BMI) 27.0 11/01/2015 10:45pm Results Laboratory Results Test Name Result Units Flags Reference Collection Date/Time Result Date/ Time Comments Icterus Index < 2 0-7 08/05/2015 11:47am 08/05/2015 12:12pm Chemistry Specimen Hemolysis < 15 0-25 08/05/2015 11:47am 08/05/2015 12:12pm 0-25: Specimen Exhibited No Hemolysis. Turbidity < 20 0-20 08/05/2015 11:47am 08/05/2015 12:12pm Sodium Level 139 MEQ/L 134-144 08/05/2015 11:47am 08/05/2015 12:12pm Potassium Level 3.6 MEQ/L 3.6-5 08/05/2015 11:47am 08/05/2015 12:12pm Chloride Level 105 MEQ/L 98-107 08/05/2015 11:47am 08/05/2015 12:12pm Carbon Dioxide Level 23 MEQ/L 22-30 08/05/2015 11:47am 08/05/2015 12: 12pm Anion Gap 11 MEQ/L 5-15 08/05/2015 11:47am 08/05/2015 12:12pm Blood Urea Nitrogen 24.0 MG/DL H 9-20 08/05/2015 11:47am 08/05/2015 12: 12pm Creatinine 1.4 MG/DL 0.8-1.5 08/05/2015 11:47am 08/05/2015 12:12pm BUN/Creatinine Ratio 17 RATIO 6-08/05/2015 11:47am 08/05/2015 12: 12pm Glomerular Filtration Rate Calc 48 08/05/2015 11:47am 08/05/2015 12 :12pm Glucose Level 98 MG/DL 75-110 08/05/2015 11:47am 08/05/2015 12:12pm Calculated Osmolality 272 MOSM/KG 261-280 08/05/2015 11:47am 2015 12:12pm Calcium Level 8.9 MG/DL 8.4-10.2 08/05/2015 11:47am 08/05/2015 12:12pm Reason Tests Not Done HEMOLYZED SPECIMEN 08/05/2015 11:39am 2015 11:40am Tests Not Done CMP, INR 08/05/2015 11:39am 08/05/2015 11:40am Specimen Comment ([facility]) LAB TO RECOLLECT 08/05/2015 11:39am 2015 11:40am White Blood Count 11.1 T/MM3 H 4.5-11.0 11/01/2015 11:37pm 11/01/2015 11 :52pm Red Blood Count 4.21 M/MM3 L 4.50-5.90 11/01/2015 11:37pm 11/01/2015 11: 52pm Hemoglobin 13.0 GM/DL L 13.5-17.5 11/01/2015 11:37pm 11/01/2015 11:52pm Hematocrit 39.4 % L 41-53 11/01/2015 11:37pm 11/01/2015 11:52pm Mean Corpuscular Volume 93.6 UM3 80-100 11/01/2015 11:37pm 11/01/2015 11:52pm Mean Corpuscular Hemoglobin 30.9 UUG 26-34 11/01/2015 11:37pm 2015 11:52pm Mean Corpuscular Hemoglobin Concent 33.0 GM/DL 31-37 11/01/2015 11:37pm 11/01/2015 11:52pm RDW Standard Deviation 46.1 FL 36.9-50.2 11/01/2015 11:37pm 11/01/2015 11:52pm Platelet Count 300 T/MM3 130-400 11/01/2015 11:37pm 11/01/2015 11:52pm Mean Platelet Volume 9.3 UM3 L 9.4-12.4 11/01/2015 11:37pm 11/01/2015 11 :52pm Neutrophils (%) (Auto) 69.8 % H 33-66 11/01/2015 11:37pm 11/01/2015 11: 52pm Lymphocytes (%) (Auto) 19.4 % L 23-45 11/01/2015 11:37pm 11/01/2015 11: 52pm Monocytes (%) (Auto) 6.9 % 0-9.0 11/01/2015 11:37pm 11/01/2015 11:52pm Eosinophils (%) (Auto) 3.4 % 0-4 11/01/2015 11:37pm 11/01/2015 11:52pm Basophils (%) (Auto) 0.3 % 0-2 11/01/2015 11:37pm 11/01/2015 11:52pm Immature Granulocyte % (Auto) 0.2 % 0.0-0.5 11/01/2015 11:37pm 2015 11:52pm Absolute Neutrophils (auto) 7.7 T/MM3 1.8-7.7 11/01/2015 11:37pm 2015 11:52pm Absolute Lymphocytes (auto) 2.2 T/MM3 1-4.8 11/01/2015 11:37pm 2015 11:52pm Absolute Monocytes (auto) 0.8 T/MM3 0-0.8 11/01/2015 11:37pm 2015 11:52pm Absolute Eosinophils (auto) 0.4 T/MM3 0-0.5 11/01/2015 11:37pm 2015 11:52pm Absolute Basophils (auto) 0.0 T/MM3 0-0.2 11/01/2015 11:37pm 2015 11:52pm Absolute Immature Granulocyte (auto 0.02 T/MM3 0.00-0.03 11/01/2015 11: 37pm 11/01/2015 11:52pm Prothromb Time International Ratio 4.44 H 0.99-1.21 11/01/2015 11:37pm 11/01/2015 11:57pm THERAPUTIC RANGE=2.00-3.00 FOR ANTI-THROMBOSIS THERAPUTIC RANGE=2.50-3.50 FOR IMPLANTED VALVE Procedures Procedure Status Date Provider(s) ROUTINE VENIPUNCTURE Completed 08/05/15 METABOLIC PANEL TOTAL CA Completed 08/05/15 COMPLETE CBC W/AUTO DIFF WBC Completed 08/05/15 PROTHROMBIN TIME Completed 08/05/15 ELECTROCARDIOGRAM TRACING Completed 08/05/15 L HRT ARTERY/VENTRICLE ANGIO Completed 08/05/15 FELI MCCARTNEY MD [id number] ITEM OR SERVICE Completed 08/05/15 [id number] ITEM OR SERVICE Completed 08/05/15 [id number] THAN PEEL-AWAY Completed 08/05/15 104787"INJECTION, HEPARIN SODIUM, PER 1000 UNITS" Completed 08/05/15 646726"INJECTION, HEPARIN SODIUM, PER 1000 UNITS" Completed 08/05/15 728485"INJECTION, HEPARIN SODIUM, PER 1000 UNITS" Completed 08/05/15 950094"INJECTION, MIDAZOLAM HYDROCHLORIDE, PER 1 MG" Completed 08/05/15 449600"INJECTION, FENTANYL CITRATE, 0.1 MG" Completed 08/05/15 [id number] DRUGS Completed 08/05/15 [id number]"INFUSION, NORMAL SALINE SOLUTION , 1000 CC" Completed 08/05/15 531385"LOW OSMOLAR CONTRAST MATERIAL, 300-399 MG/ML IODINE C Completed [id number]"LOW OSMOLAR CONTRAST MATERIAL, 300-399 MG/ML IODINE C Completed CHEST X-RAY 2VW FRONTAL&LATL Completed 10/16/15 Encounters Encounter Location Arrival/Admit Date Discharge/Depart Date Attending Provider Departed Emergency Room [facility] 11/01/15 10:40pm 11/02/15 2: 57am ALISTAIR JACKSON MD Registered [facility] 10/16/15 11:59am FELI MCCARTNEY MD Departed [facility] 08/05/15 10:49am 08/05/15 5:25pm FELI MCCARTNEY MD Recent Diagnosis
--- NOTE | 2016-06-30 12:46 | ERPDOC ---
Departure Disposition Decision Date: June 30, 2016 Disposition Decision Time: 15:02 Disposition: 01 DISCHARGED HOME, SELF-CARE Impression Impression Impression: Primary Impression: Atrial fibrillation Atrial fibrillation type: chronic Qualified Codes: I48.2 - Chronic atrial fibrillation Additional Impressions: Dyspnea Dyspnea type: dyspnea on exertion Qualified Codes: R06.09 - Other forms of dyspnea Sinus congestion Condition: Stable Seen By: Mid-level only Referrals: CANDICE DURAN DO (Family) Patient Instructions: Atrial Fibrillation (ED) Problems/Meds/Labs Reviewed?: Yes Medications reviewed and manag: Yes Additional Instructions: You have been in atrial fibrillation since 7:45 this morning (per pacemaker interrogation). Your head and sinus CT showed no acute findings. Stop amlodipine and start verapamil 180mg daily. Start Eliquis 2.5mg twice daily. Hold Lasix for [address] Benavides for follow up appointment in the next 1-2 days. Follow up care ordered?: Yes Mental Status: Alert Scripts Apixaban (Eliquis) 2.5 Mg Tablet 11 TAB-CAP PO BID, #30 Prov: KAITLIN SMITH PHARMACY ORDER ENTRY TECHNICIAN 06/30/16 Verapamil HCl (Verapamil ER) 180 Mg Cap24h.pel 1 TAB-CAP PO DAILY, #30 Prov: KAITLIN SMITH PHARMACY ORDER ENTRY TECHNICIAN 06/30/16 HPI - Cardiac General Stated Complaint: FLUCTUATING HEART RATE Time Seen by Provider: 12:43 Source: patient HPI - Cardiac General Initial Comments 85-year-old male presents to ER with complaint of dyspnea, dizziness, headaches and sinus drainage with cough for for "some time. Has become worse over the last few weeks. Patient states he has visited his PCP and Dr. Benavides for this. PCP has patient scheduled for CT of head and sinus CT according to patient. states that Dr. CHRISTIAN hurley is scheduled patient for a stress test later this month. Patient denies any chest pain however reports that dyspnea is with exertion and sometimes when just sitting still. Patient does report he has been having intermittent headaches with sinus drainage for past 6 weeks or longer. Dizziness is intermittent and varies from when he is sitting still or movement. Patient is electronically ventricular paced. Aspirin Today: contraindicated Associated Symptoms: cough, shortness of breath, DENIES: chest pain, diaphoresis, fever/chills, headaches, malaise, nausea/vomiting, other (ataxia), syncope, weakness Allergies: Coded Allergies: Penicillins (Verified Allergy, Unknown, THROAT SWELLING, 06/30/16) azithromycin (Verified Allergy, Unknown, ITCHY RASH, 06/30/16) codeine (Verified Allergy, Unknown, ITCHY RASH, 06/30/16) doxazosin (Verified Allergy, Unknown, N/D,DIZZINESS, 06/30/16) guaifenesin (Verified Allergy, Unknown, ITCHY RASH, 06/30/16) levofloxacin (Verified Allergy, Unknown, N/V,SOA,WEISS, 06/30/16) meperidine (Verified Allergy, Unknown, HYPOTENSION, 06/30/16) metronidazole (Verified Allergy, Unknown, HIVES, 06/30/16) nebivolol (Verified Allergy, Unknown, FATIGUE,SOA, 06/30/16) oxaprozin (Verified Allergy, Unknown, HIVES, 06/30/16) potassium chloride (Verified Allergy, Unknown, PAIN, 06/30/16) pregabalin (Verified Allergy, Unknown, CONFUSION,WEAKNESS, 06/30/16) promethazine (Verified Allergy, Unknown, HYPOTENSION, 06/30/16) spironolactone (Verified Allergy, Unknown, 06/30/16) Beta-Blockers (Beta-Adrenergic Bloc (Verified Adverse Reaction, Unknown, IRRITABILITY, 06/30/16) amlodipine (Verified Adverse Reaction, Unknown, "QUIT WORKING", 06/30/16) celecoxib (Verified Adverse Reaction, Unknown, CONSTIPATION, 06/30/16) chlorthalidone (Verified Adverse Reaction, Unknown, LEG CRAMPS, 06/30/16) clonidine (Verified Adverse Reaction, Unknown, DRY MOUTH, 06/30/16) diphenhydramine (Verified Adverse Reaction, Unknown, "HANGOVER", 06/30/16) donepezil (Verified Adverse Reaction, Unknown, RESTLESSNESS, 06/30/16) enalapril (Verified Adverse Reaction, Unknown, FATIGUE, 06/30/16) hydrocodone (Verified Adverse Reaction, Unknown, NAUSEA, 06/30/16) ibuprofen (Verified Adverse Reaction, Unknown, "FEELS DRUGGED", 06/30/16) tizanidine (Verified Adverse Reaction, Unknown, PAIN/WEAKNESS, 06/30/16) Past History Patient Surgical History Cardiac stenting cataract repair deviated septum repair appendectomy tonsillectomy Past Medical History Metabolic: hypertension, hypothyroidism Cardiac: A-fib, CAD, echocardiogram Hx Echocardiogram: No Respiratory: DENIES: COPD, asthma GI: DENIES: ulcers Male: DENIES: renal failure Neurological: DENIES: seizures Musculoskeletal: back pain Psychological: depression Surgical History General: appendix, back, colonoscopy, neck, tonsils Cardiac: cardiac cath, cardiac stent, pacemaker Family History Family PMH: FOUND: hypertension Vaccines Hx Influenza Vaccination: Yes (FALL 2014) Hx Pneumococcal Vaccination: Yes (UNKNOWN YEAR) Hx Tetanus Diptheria: No Hx Tetanus, Diptheria, Pertuss: No Social History Sexuality: female partner Current Occupational Status: retired Review of Systems Constitutional Constitutional: dizziness, DENIES: chills, fever, weakness Eyes General: erythema, DENIES: exudate Lids/Accessories: DENIES: erythema, swelling ENMT Ears: DENIES: pain Hearing: hearing loss Sinuses: congestion, rhinorrhea Mouth/Throat: DENIES: sore throat Cardiovascular Cardiac: dyspnea on exertion, DENIES: chest pain, murmur Rhythm/Rate: irregular beat Vascular: DENIES: pallor of an extremity, pedal edema, unilateral swelling Pulmonary Respiratory: cough, dyspnea GI Upper Abdomen: DENIES: nausea, pain, vomiting Lower Abdomen: blood in stool, DENIES: diarrhea, pain General: DENIES: dysuria, pain Musculoskeletal General: DENIES: joint pain, pain, tenderness Integumentary Skin: DENIES: color change, itching, rash Neurological General: DENIES: ataxia, change in strength, numbness, paralysis/paresis, weakness Psychiatric Psychiatric: DENIES: anxiety, depression, nervousness Physical Exam General General Nourishment: well nourished, well developed, no acute distress, adult Pediatric General Nourishment: well nourished, well hydrated General Body Habitus: well groomed Vitals and Pain First Documented Vital Signs Date Time Temp Pulse Resp B/P Pulse Ox O2 Delivery O2 Flow Rate FiO2 06/30/16 12:34 97.6 100 16 148/74 100 Nasal Cannula 2.00 Weight: Kilograms: Height (feet): 5 Height (inches): 9.00 Triage Pain Scale: Eyes (brief) Eyes Brief: found: EOMI, PERRL, other (bilateral injected) Eyes Abnormal Movement: NOT FOUND: nystagmus ENMT (brief) ENMT Brief: FOUND: mucosa moist, NOT FOUND: nasal exudate, nasal swelling, pharnyx erythema Neck (brief) Neck: FOUND: trachea midline, NOT FOUND: adenopathy, tenderness, thyromegaly Respiratory (brief) Respiratory: FOUND: clear all caputo, equal bilaterally, symmetrical Cardiovascular Auscultation: FOUND: S1, S2 Edema : Edema Site: bilateral Edema Degree: 0 Abdomen (brief) Abdominal Brief: FOUND: bowel normo active x4, soft, NOT FOUND: tender Musculoskeletal (brief) Musculoskeletal Brief: NOT FOUND: deformity, loss of motion Integumentary (brief) Integumentary Brief: FOUND: dry, pink, warm Neurologic (brief) Neurological Brief: FOUND: CN w/o gross def to obs, motor-no gross deficits, sensory-no gross deficits Psychiatric (brief) Psychiatric Brief: FOUND: alert, normal affect, oriented Differential Diagnoses Considering: Heart Block Considering: Cardiac Dysrhythmia, Long QT Syndrome, Orthostatic Hypotension, TIA Considering: Acute Bronchitis, Acute MN, Pneumonia Progress Results/Orders Orders Procedure Category Date Status Time Cbc W/Auto LAB 06/30/16 Complete Diff-Reflex Manual 12:44 Cmp - Comprehensive LAB 06/30/16 Complete Metabolic 12:44 Probnp LAB 06/30/16 Complete 12:44 Troponin I W LAB 06/30/16 Complete Hemolysis Index 12:44 INR LAB 06/30/16 Complete 12:44 EKG EKG 06/30/16 Taken 12:44 Iv Lock (Ed Only) EDM 06/30/16 Transmitted 12:44 Orthostatic Vitals BRENDA 06/30/16 In Process Signs 13:00 Chest, Pa & Lateral RAD 06/30/[address] Head W/O Contrast CT 06/30/[address] Sinuses W/O CT 06/30/16 Resulted Contrast Lab Results Laboratory Tests Test 06/30/16 13:03 White Blood Count 8.8T/MM3 Red Blood Count 4.31M/MM3 Hemoglobin 11.9GM/DL Hematocrit 35.1% Mean Corpuscular Volume 81.4UM3 Mean Corpuscular Hemoglobin 27.6UUG Mean Corpuscular Hemoglobin Concent 33.9GM/DL RDW Standard Deviation 44.9FL Platelet Count 276T/MM3 Mean Platelet Volume 9.8UM3 Immature Granulocyte % (Auto) 0.3% Neutrophils (%) (Auto) 66.6% Lymphocytes (%) (Auto) 20.8% Monocytes (%) (Auto) 8.3% Eosinophils (%) (Auto) 3.7% Basophils (%) (Auto) 0.3% Absolute Immature Granulocyte (auto 0.03T/MM3 Absolute Neutrophils (auto) 5.9T/MM3 Absolute Lymphocytes (auto) 1.8T/MM3 Absolute Monocytes (auto) 0.7T/MM3 Absolute Eosinophils (auto) 0.3T/MM3 Absolute Basophils (auto) 0.0T/MM3 Prothromb Time International Ratio 1.14 Turbidity < 20 Sodium Level 141MEQ/L Potassium Level 4.1MEQ/L Chloride Level 107MEQ/L Carbon Dioxide Level 20MEQ/L Anion Gap 14MEQ/L Blood Urea Nitrogen 26.0MG/DL Creatinine 1.8MG/DL Glomerular Filtration Rate Calc 36 BUN/Creatinine Ratio 14RATIO Glucose Level 103MG/DL Calculated Osmolality 276MOSM/KG Calcium Level 9.4MG/DL Total Bilirubin 0.40MG/DL Icterus Index < 2 Aspartate Amino Transf (AST/SGOT) 38U/L Alanine Aminotransferase (ALT/SGPT) 36U/L Alkaline Phosphatase 97U/L Troponin I < 0.012ng/ml IO-Jak-S-Type Natriuretic Peptide 709PG/ML Total Protein 7.1G/DL Albumin 4.0G/DL Globulin 3.1G/DL Albumin/Globulin Ratio 1.3RATIO Chemistry Specimen Hemolysis < 15 Progress Progress Labs unremarkable, increased in creatinine from 1.4 to 1.8 from July of last year which maybe from Lasix use. Practice Representative called from [employer] reporting patient has been in atrial fibrillation since 7:45 AM today. Appears patient has been going in and out of atrial fib for several days. I discussed conversation I had with Dr. Benavides, labs, CTs, BALLASTER and report from [employer] with patient and his . Patient and his verbalize understanding of treatment plan, follow up with Dr. Benavides and return precautions. Consult/PCP Consult/PCP #1: Type of discussion: Phone Consult/PCP Discussion Details I discussed patient's HPI, past medical history, and exam findings with Dr. Duran patient's PCP. Dr. Duran stated that he was going to order a head CT and sinus CT due to the fact that patient has been complaining of headaches and sinus drainage and congestion for several weeks which may be attributing to patient feeling short of air and his dizziness. Dr. Duran agrees to having CTs done here in the ER. Consult/PCP #2: Type of discussion: Phone Consult/PCP Discussion Details I discussed patient's HPI, past medical history, vital signs, EKG, report on pacemaker interrogation that patient is in atrial fibrillation since 745 this morning, current medications and exam findings with Dr. GONZALES any patient's produce runner. Dr. GONZALES and he would like patient to stop amlodipine and start verapamil 180 mg daily. Also would like patient started on Nima with 2.5 mg twice a day. Patient should follow in the office the next 1-2 days for reevaluation. Please let patient know that he may need to have another ablation to control the atrial fibrillation. KAITLIN SMITH APRN June 30, 2016 12:46
--- OUTSIDE RECORDS SUMMARY | 2016-06-30 12:55 | XMS REPORT ---
Author Author [facility], [facility] - Organization Unknown Address Unknown Phone [...]
--- OUTSIDE RECORDS SUMMARY | 2016-06-30 12:55 | XMS REPORT | Continuity of Care Document ---
Author Author [facility] Organization [facility] Address Unknown Phone Unavailable Care Team Providers Care Roundsman Name Role Phone Unknown, Unknown Primary Care Physician Unavailable Source Comments Some departments are not documenting in the electronic medical record. If you do not see the information that you expected, contact Release of Information in the Health Information Management department at [phone] for further assistance in locating additional records.[facility] Active Allergies and Adverse Reactions Allergen Noted [...]
[2016-06-30] MEDS ORDERED: CLOP75TA33 PO (12:56)
[2016-06-30] MEDS ORDERED: AMLO10TA2 PO (12:56)
--- OUTSIDE RECORDS SUMMARY | 2016-06-30 12:56 | XMS REPORT | Continuity of Care Document ---
Author Author [facility] Organization [facility] Address Unknown Phone Unavailable Support Name Relationship Address Phone LENARD ROSS MD Caregiver [address] [place] [address] [place] [address] CANDICE DURAN DO Caregiver [facility] [address] [place] [address] ALISTAIR JACKSON MD Caregiver [address] [place] [address] [place] [phone] RICHARD VARGHESE Next Of Kin [address] [facility], [place] [id number] Insurance Providers Payer Name Policy Number Subscriber Name Relationship Medicare [id number] Jaswant Varghese 20 Self Blue Cross Select Plan 65 [id number] Jaswant Varghese 18 Self Advance Directives Directive [...] Dr Duran in 1-2 weeks for follow up.[phone] APPOINTMENT TIME IS 02/11/2014 1:00. Patient Instructions: [...] F (96.8 - 99.1) Temperature (Calculated Celsius) 35.16287 degrees C (36.0 - 37.3) Temperature Source [...] 17, 2014 8:31pm LAB TEST FORM REQUEST [id number] - Lipase July 10, 2013 2:15pm 102 [...] Has specimen been collected/obtained? Y Urine Specific [place] January 27, 2014 9:23pm >=1.030 H - [...] January 27, 2014 8:56pm 699 PG/ML N [id number] COMMENT may use blood in lab White Blood Count February 01, 2014 4:44am 9.3 T/MM3 N 4.5-11.0 Blood Culture Peripheral Blood January 27, 2014 8:56pm NO GROWTH AFTER 4 DAYS Stool Culture Stool July 10, 2013 2:55pm Name: JASWANT VARGHEES Unit #: [id number] : 1930 Sex: M DISCHARGE SUMMARY Admit Date: 01/27/14 Report #: [id number] General Date Date DATE: 02/01/14 TIME: 14:04 [...] is an 83-year-old gentleman who presents to [facility] Emergency Room secondary to increasing shortness [...] was subsequently placed in inpatient status at [facility] for supportive care and treatments. Anticipated length of stay is deemed to be greater than two midnights. Intensity of care is deemed moderate in that he will need IV fluids, IV Rocephin, close cardiopulmonary monitoring. Hospital Course 01/27- 1. Will place patient inpatient admission status at [facility] under the care of Dr. Ross. [...] Dr. Duran at time of discharge from [facility]. 01/28- Will hold HCTZ, continue IVF, [...] O2 and a home nebulizer machine through [facility]. [facility] will see for home health services. [...] DO 02/01/14 Diltiazem HCl (Cardizem [place])360 Mg Koopjly147 Mg PO DAILY 30 Days Prov:LEONARDA PANTOJA DO 02/01/14 Budesonide (Pulmicort)0.5 Mg/2 Ml Inha0.5 Mg AEROSOL RTBID 14 Days Prov:SCARLETTLEONARDA BARAJAS DO 02/01/14 Benzonatate 200 Mg Gjzozsu243 Mg PO TID PRN (COUGH) #30 CAP Prov:LEONARDA PANTOJA DO 02/01/14 Reported Medications Fluoxetine HCl 20 Mg Wwhwcky44 Mg PO DAILY #30 01/27/14 Buspirone Hcl (Buspar)10 Mg Cmsouw48 Mg PO TID 05/07/13 Nicardipine Hcl 20 Mg Wkmzlii63 Mg PO TID 05/07/13 Acetaminophen (Tylenol)500 Mg Tablet2 Tab PO PRN 05/07/13 Thyroid (Nazareth Thyroid)60 Mg Zliaqw96 Mg PO DAILY 05/07/13 Irbesartan (Avapro)300 Mg Aqdouj951 Mg PO BID 05/07/13 Hydrochlorothiazide 25 Mg Fdaqhc43.5 Mg PO DAILY 05/07/13 Pantoprazole (Protonix)40 Mg Tablet.dr40 Mg PO DAILY 05/07/13 Warfarin Sodium 5 Mg Tablet5 Mg PO DAILY 05/07/13 Cetirizine Hcl (Zyrtec)10 Mg Vjvavpr68 Mg PO DAILY 05/07/13 Discharge Disposition stable Copies To 1: CANDICE DURANEMANLEONARDA Feb 01, 2014 14:05 Procedures Procedure Status Date Provider(s) ROUTINE VENIPUNCTURE completed 01/17/14 COMPLETE CBC W/AUTO DIFF WBC completed 01/17/14 Encounters Encounter Location Date/Time Discharged Inpatient [facility] 01/27/14 10:29pm Registered Clinic [facility] 01/17/14 5:00pm Recent Diagnosis Hypertension Hypokalemia, gastrointestinal losses Influenza A Hyponatremia SIRS (systemic inflammatory response syndrome) Influenza A Pneumonia and influenza
[2016-06-30] MEDS ORDERED: [UNRECOGNIZED DRUG - CODE] TOP (13:03)
[2016-06-30] MEDS ORDERED: IRBE150T28 PO (13:03)
--- NOTE | 2016-06-30 13:05 | NUR ---
Lea orta in ED - 06/30/16 at 1331 by DAMI ADMISSION CALLED [facility], SURGICAL UNIT CHARGE FOR BED ASSIGNMENT. PATIENT TO GO TO ROOM 109. TYSHAWN JOHNSON TO TAKE REPORT AT EXTENSION [id number].
[2016-06-30] MEDS ORDERED: ACET325T51 PO (13:06)
[2016-06-30] MEDS ORDERED: POTA99TA4 PO (13:11)
[2016-06-30] MEDS ORDERED: BETA2500 PO (13:11)
[2016-06-30] MEDS ORDERED: LUTE20TA PO (13:11)
[2016-06-30] MEDS ORDERED: MAGN250T PO (13:11)
[2016-06-30] MEDS ORDERED: PYGEUM PO (13:16)
[2016-06-30] MEDS ORDERED: SAW PALMETTO PO (13:16)
[2016-06-30] MEDS ORDERED: VITA400T9 PO (13:19)
[2016-06-30] MEDS ORDERED: ZINC50TA4 PO (13:19)
[2016-06-30] MEDS ORDERED: CHOL-9 PO (13:19)
[2016-06-30 13:25] LABS: BASOPHILS % (AUTO) 0.3 % (0-2); EOSINOPHILS # (AUTO) 0.3 T/MM3 (0-0.5); EOSINOPHILS % (AUTO) 3.7 % (0-4); HCT - HEMATOCRIT 35.1 % (41-53); HGB - HEMOGLOBIN 11.9 GM/DL (13.5-17.5); IMMATURE GRANULOCYTE # (AUTO) 0.03 T/MM3 (0.00-0.03); IMMATURE GRANULOCYTE % (AUTO) 0.3 % (0.0-0.5); LYMPHOCYTES # (AUTO) 1.8 T/MM3 (1-4.8); LYMPHOCYTES % (AUTO) 20.8 % (23-45); MEAN CORPUSCULAR HGB 27.6 UUG (26-34); MEAN CORPUSCULAR HGB CONC(MCHC 33.9 GM/DL (31-37); MEAN CORPUSCULAR VOLUME 81.4 UM3 (80-100); MEAN PLATELET VOLUME 9.8 UM3 (9.4-12.4); MONOCYTES # (AUTO) 0.7 T/MM3 (0-0.8); MONOCYTES % (AUTO) 8.3 % (0-9.0); NEUTROPHILS #(AUTO)-ABSOLUTE 5.9 T/MM3 (1.8-7.7); NEUTROPHILS % (AUTO) 66.6 % (33-66); RED BLOOD COUNT 4.31 M/MM3 (4.50-5.90); WBC - WHITE BLOOD COUNT 8.8 T/MM3 (4.5-11.0)
[2016-06-30 13:35] LABS: INR 1.14 (0.77-1.03); PROTHROMBIN TIME 12.5 SEC (9.48-12.52)
[2016-06-30 13:38] LABS: ALBUMIN/GLOBULIN RATIO 1.3 RATIO (1.1-2.2); ALKALINE PHOSPHATASE 97 U/L (38-126); ALT (SGPT) 36 U/L (21-72); ANION GAP 14 MEQ/L (5-15); AST (SGOT) 38 U/L (17-59); BUN/CREATININE RATIO 14 RATIO (6-26); CALCIUM 9.4 MG/DL (8.4-10.2); CHLORIDE 107 MEQ/L (98-107); CO2 - CARBON DIOXIDE 20 MEQ/L (22-30); CREATININE 1.8 MG/DL (0.8-1.5); GLOMERULAR FILTRATION RATE 36; GLUCOSE 103 MG/DL (75-110); POTASSIUM 4.1 MEQ/L (3.6-5); SODIUM 141 MEQ/L (134-144); TOTAL PROTEIN 7.1 G/DL (6.3-8.2)
--- NOTE | 2016-06-30 14:00 | NUR ---
STATUS RESTS QUIETLY. NO CP OR CHANGES. MONITOR AFIB W RATE ABOVE 100 WITH INTERMITTENT PACED BEATS
[2016-06-30 14:09] LABS: PROBNP 709 PG/ML (0-175)
--- NOTE | 2016-06-30 14:19 | DI ---
Indication: ITS.REASON: dizziness and headaches PROCEDURE: CT HEAD W/O CONTRAST: Encounter: Initial Comparison: March 11, 2015 Technique: Axial CT images through the head were performed without contrast. Iterative Reconstruction dose reducing technique was utilized. FINDINGS: The ventricles are of normal size, shape, and contour for the patient's age. There are scattered areas of low attenuation in the white matter which most likely represent changes from chronic microvascular ischemia. The brainstem, cerebellum, and cerebral hemispheres otherwise have a normal morphology and CT attenuation. There is no evidence of midline displacement. No hemorrhage, signs of acute territorial stroke, mass effect, mass lesions, or edema is evident. The visualized portions of the skull base, midface, and calvarium demonstrate no abnormality. The paranasal sinuses are well aerated and free of significant disease. The tympanic and mastoid cavities appear normal. IMPRESSION: No acute intracranial abnormality or hemorrhage. .
--- NOTE | 2016-06-30 14:21 | DI ---
Indication: ITS.REASON: sinus pain and chronic headaches PROCEDURE: CT SINUSES W/O CONTRAST: Encounter: Initial Comparison: None Technique: Axial CT images were performed through the sinuses without intravenous contrast. Coronal and sagittal two-dimensional reformats. Automated Exposure Control and Iterative Reconstruction dose reducing techniques were utilized. Findings: Tiny mucus retention cyst in the right maxillary sinus. Trace mucosal thickening in the inferior left maxillary sinus. The maxillary sinuses are otherwise clear. The ostiomeatal units are patent. The frontal sinuses are clear. The anterior, middle and posterior ethmoid air cells are clear. Sphenoid sinuses are clear. Left sphenoid ostium is narrowed by mucosal thickening. Right sphenoid ostium is patent. The visualized mastoid air cells and middle ear cavities are clear. Mild rightward nasal septal spurring. Impression: No significant sinus disease or evidence of acute sinusitis. .
--- NOTE | 2016-06-30 14:22 | DI ---
INDICATION: ITS.REASON: cough and SOA PROCEDURE: CHEST 2-VIEWS UPRIGHT (PA \T\ LAT) Encounter: Initial Comparison: October 16, 2015 Findings: Prior left pleural effusion and lower lobe airspace disease has resolved. No focal consolidation. There is no pleural effusion or pneumothorax. The heart size, pulmonary vascularity and mediastinal contours are unchanged. Prior CABG with left cardiac pacemaker. IMPRESSION: No acute cardiopulmonary disease. .
--- NOTE | 2016-06-30 14:30 | NUR ---
REPORT TO ALEX VILLAGRAN
[2016-06-30] MEDS ORDERED: APIX2.5T PO (15:12)
[2016-06-30] MEDS ORDERED: VERA180C2 PO (15:12)
[2016-06-30 15:37] VITALS: BP 130/67; PULSE 111; RESP 11; TEMP 97.6; O2SAT 100
--- NOTE | 2016-06-30 15:37 | NUR ---
DEPART PT GIVEN DI FOR AFIB, ELIQUIS, VERAPAMIL, F/U. RX PROVIDED FOR ELIQUIS, VERAPAMIL. PT AND SPOUSE VERBALIZE UNDERSTANDING OF DI, MEDS, F/U. QUESTIONS ASKED/ANSWERED - DENIES FURTHER QUESTIONS/NEEDS AT THIS TIME. IV SITE REMOVED. PERSONAL BELONGINGS GATHERED. PT AMBULATED/ESCORTED TO ED EXIT - GAIT STABLE, NO SIGN OF DISTRESS AT THIS TIME.
== END 2016-06-30 15:37 | disposition home or self-care (01) ==
LOC: ED 12:28
DX: I48.2 Chronic atrial fibrillation (principal); R06.09 Other forms of dyspnea; R09.81 Nasal congestion; R05 Cough; R42 Dizziness and giddiness; R51 Headache; J34.89 Other specified disorders of nose and nasal sinuses; Z79.01 Long term (current) use of anticoagulants
CPT/HCPCS: 36415; 80053; 83880; 84484; 85025; 85610; 93005

== ENCOUNTER → 2016-07-06 | Outpatient (CLI) | payer MEDICARE, BC ==
[~2016-07-06] MED LIST changes: -ACET-732 PO; +ACET325T51 PO; +APIX2.5T PO; +BETA2500 PO; +CHOL-9 PO; -CHOL200026 PO; -CLOB15OI3 TP; -HYDR-2164 PO; +IRBE150T28 PO; -IRBE300T19 PO; +LUTE20TA PO; -LUTE6TAB PO; +MAGN250T PO; -NICA20CA4 PO; -POTA-81 PO; +POTA99TA4 PO; +SAW PALMETTO PO; -TRIA10.82 EA NOSTRIL; -TRIA15CR3 TOP; +VERA180C2 PO; -VITA100012 PO; +VITA400T9 PO; -WARF2.5T73 PO; -WARF5TAB69 PO; +[UNRECOGNIZED DRUG - CODE] TOP
--- NOTE | 2016-07-06 11:06 | DI ---
Indication: ITS.REASON: R51 HEADACHE PROCEDURE: CT HEAD W/O CONTRAST: Encounter: Initial Comparison: Head CT dated June 30, 2016 Technique: Axial CT images through the head were performed without contrast. Iterative Reconstruction dose reducing technique was utilized. FINDINGS: The ventricles are of normal size, shape, and contour for the patient's age. There are scattered areas of low attenuation in the white matter which most likely represent changes from chronic microvascular ischemia. The brainstem, cerebellum, and cerebral hemispheres otherwise have a normal morphology and CT attenuation. There is no evidence of midline displacement. No hemorrhage, signs of acute territorial stroke, mass effect, mass lesions, or edema is evident. The visualized portions of the skull base, midface, and calvarium demonstrate no abnormality. The paranasal sinuses are well aerated and free of significant disease. The tympanic and mastoid cavities appear normal. IMPRESSION: No acute intracranial abnormality or hemorrhage. Stable head CT. .
== END ==
LOC: IMA 10:21
PROVIDERS: ATTEND Family Medicine
DX: R51 Headache (principal)